=== PATIENT | male | born 1970 | race Caucasian/White ===

== ENCOUNTER 2024-10-30 08:23 | Outpatient (CLI) | payer OTHER, SELFPAY ==
--- NOTE | 2024-10-30 08:15 | RT.EKG_ITS ---
APPROVED REPORT Exam: Resting ECG Reason for Exam: afib, CAD Patient Location: O HR:70 bpm ECG Measurements Heart Rate 70 AXIS [place] 138 P 17 QRSd 106 QRS -48 QT 429 T 50 QTc 463 Conclusion Sinus rhythm...normal P axis, V-rate 50- 99 LAD, consider left anterior fascicular block...axis(240,-40), S>R II III aVF Borderline low voltage, extremity leads...all extremity leads <0.6mV
== END 2024-10-30 08:24 | disposition home or self-care (01) ==
LOC: DI.CARD 08:24
PROVIDERS: PCP Nurse Practitioner Family; Visit Provider Registered Nurse
DX: I48.91 Unspecified atrial fibrillation
CPT/HCPCS: 93010

== ENCOUNTER 2024-11-30 03:43 | Outpatient (CLI) | payer OTHER, SELFPAY ==
--- NOTE | 2024-11-30 08:15 | DI.US_ITS ---
APPROVED REPORT Exam: Exercise Treadmill Patient Location: Out-Patient Room/Bed: Stress Nurse: Nely Redd RN Ordering Provider:TONY CASAREZ, Contact Number: BMI: 42.56 Baseline Rhythm: Sinus Rhythm Indications: Chest pain, SOB, palpitations awakening during PM, afib Medical History Medical History: Anxiety, migraines, afib, GERD, asthma, CAD, HTN, morbid obesity, HLD, depression. p anic attacks, vitmain D deficiency, vitamin B12 deficiency Cardiac Medications: Albuterol, buspirone, vrayler, diclofenac, levocetirizine, lisinopril, omeprazol e, sertraline, tramadol Allergies: Beef containing products, pork/porcine containing products, chicken derived, pollen, anima l dander Cardiac Risk Factors: Family hx, HTN, HLD, asthma, CVD, former smoker, obesity Previous Cardiac Procedures: None Pretest Chest Pain Characteristics: None Exercise History: Indeterminate Physical Disabilities: None Lung Sounds: Clear to auscultation Heart Sounds: Regular Stress Test Details Test: Exercise stress testing was performed using a Nguyễn protocol. Rest Stress HR Resting HR Supine: 62 bpm Max Heart Rate (APMHR): 166 bpm Resting HR Standin bpm Target HR (85% APMHR): 141 bpm Max HR Achieved: 135 bpm % of APMHR: 81 Recovery HR: 74 bpm HR response to stress: Normal HR response to stress BP Resting BP Supine: 110/80 mmHg Resting BP Standin/80 mmHg Max BP: 180/80 mmHg Recovery BP: 130/70 mmHg BP response to stress: Normal blood pressure response to stress. ECG Resting ECG: Sinus Rhythm Stress ECG: Sinus Tachycardia ST Change: Nondiagnostic low heart rate Arrhythmia: Rare PAC, Rare PVC Recovery ECG: Sinus Rhythm Recovery ST Change: Nondiagnostic low heart rate Recovery Arrhythmia: Rare PAC, rare PVC Clinical Reason for Termination: Dyspnea Stress Symptoms: Severe SOB Exercise duration: 06 min53 sec Highest Stage Reached: Stage 3: 3.4 mph at 14% grade. Exercise capacity: 8.42 METs Angina Score: None Rate Pressure Product: [id number] Stress ECG Conclusion 1. Resting electrocardiogram showed low voltage and late transition 2. Patient exercised on the Nguyễn protocol and completed workload of 8.42 METS 3. Normal heart rate and blood pressure response to exercise. The patient achieved 81% of predicted heart rate for age 4. Electrocardiographically the test was submaximal, but at that heart rate and workload achieved the re was no electrocardiographic evidence of myocardial ischemia 5. Resting echocardiogram showed normal left ventricular function with an ejection fraction of 60%. Postexercise echocardiogram showed augmented contractility of all segments and improvement in EF to g reater than or equal to 70%. There was no echocardiographic evidence of myocardial ischemia Stress Test Summary STAGE Time (mins) Speed (mph) Grade (%) HR BP SpO2 SYMPTOMS METS Supine 62 110/80 98% Standing 70 108/80 1 3 1.7 10 62 120/82 98% Mod SOB 4.5 2 6 2.5 12 120 130/84 97% Severe SOB 7 3 9 3.4 14 132 Severe SOB 10 1 min recovery 102 180/80 98% 3 min recovery 79 174/90 96% Mild SOB 6 min recovery 76 150/78 97% 9 min recovery 74 130/70 95% All symptoms resolved
== END 2024-11-30 04:03 ==
LOC: DI 03:43
PROVIDERS: PCP Nurse Practitioner Family; Visit Provider Registered Nurse
DX: R07.9 Chest pain, unspecified (principal); I48.91 Unspecified atrial fibrillation
CPT/HCPCS: 93350; 93017

== ENCOUNTER 2024-11-30 14:51 | Outpatient (CLI) | payer OTHER, SELFPAY ==
[2024-11-30 14:15] LABS: Hemoglobin A1C 5.6 % (<5.7)
[2024-11-30 14:30] LABS: CREATININE 1.1 mg/dL (0.70-1.30); Calculated LDL 148 mg/dL (<100); Cholesterol 230 mg/dL (<200); Estimated GFR 79.77 (mL/min/1.73m2); HDL Cholesterol 67 mg/dL (40-60); Potassium 3.9 mmol/L (3.5-5.1); Triglyceride 78 mg/dL (<150)
== END 2024-11-30 14:52 | disposition home or self-care (01) ==
LOC: LBO 14:52
PROVIDERS: PCP Nurse Practitioner Family; Visit Provider Nurse Practitioner Family
DX: I10 Essential (primary) hypertension (principal); Z13.220 Encounter for screening for lipoid disorders; Z13.1 Encounter for screening for diabetes mellitus
CPT/HCPCS: 36415; 80061; 82565; 83036; 84132

== ENCOUNTER 2024-12-30 12:59 | Outpatient (CLI) | payer OTHER, SELFPAY ==
--- NOTE | 2024-12-30 13:33 | DI.RAD_ITS ---
Exam(s) XR CHEST 2V PA LATERAL EXAM: XR CHEST 2V PA LATERAL CLINICAL HISTORY: cough, r/o pneumonia TECHNIQUE: 2D digital imaging was performed. Two views. COMPARISON: CR CHEST 2 VIEWS PA,LAT from 01/11/2012 FINDINGS: HEART: Normal size. Aorta: Not dilated. PULMONARY VASCULATURE: Normal. MEDIASTINUM: Unremarkable. LUNGS: Clear. PLEURAL SPACE: No pleural effusion or pneumothorax. BONE:Unremarkable for age. SOFT TISSUES: Unremarkable. IMPRESSION: No acute abnormality. DATA REPOSITORY: RADIATION DOSE DELIVERED:
--- NOTE | 2024-12-30 13:53 | DI.VRAD_ITS ---
PROCEDURE INFORMATION: Exam: XR Chest Exam date and time: 12/30/2024 1:27 PM Age: 54 years old Clinical indication: Cough and fever and shortness of breath; PT stated they have been sick for weeks, had a cough for weeks, presented to urgent care this morning with a fever of 102 F TECHNIQUE: Imaging protocol: Radiologic exam of the chest. Views: 2 views. COMPARISON: No relevant prior studies available. FINDINGS: Lungs: Unremarkable. No consolidation. Pleural spaces: Unremarkable. No pleural effusion. No pneumothorax. Heart/Mediastinum: Unremarkable. No cardiomegaly. Bones/joints: Unremarkable. IMPRESSION: No acute findings. Dictated and Authenticated by: Cheryl Hudson MD. Orderin Analisa Hernandez MD
== END 2024-12-30 13:19 ==
PROVIDERS: PCP Nurse Practitioner Family; Visit Provider Physician Assistant
DX: R05.9 Cough, unspecified (principal)
CPT/HCPCS: 71046

== ENCOUNTER 2025-02-05 02:07 | Outpatient (CLI) | payer OTHER, SELFPAY ==
[2025-02-05] MEDS: Levalbuterol HFA 15 GM INH 4 PUFF IH (11:30)
[2025-02-05] MEDS: Inhaler, Assist Device 1 EACH MC (11:30)
--- NOTE | 2025-02-12 14:23 | W.PFT ---
Date of service: 02/05/25 Time of Service: 10:02 Pulmonary Function Test Result Indications: Asthma Interpretation Spirometry: No airflow limitation. No bronchodilator response. Lung Volumes: Normal lung volumes Diffusion Capacity: Normal diffusion Airway Pressure: Normal airways resistance Impression Normal pulmonary function testing Clinical Correlation therefore is recommended.
== END 2025-02-05 02:08 | disposition home or self-care (01) ==
LOC: RT 02:07
PROVIDERS: PCP Nurse Practitioner Family; Visit Provider Student in an Organized Health Care Education/Training Program
DX: J45.909 Unspecified asthma, uncomplicated (principal); Z87.891 Personal history of nicotine dependence
CPT/HCPCS: 94060; 94726; 94729

== ENCOUNTER → 2025-11-20 12:18 | Outpatient (CLI) | payer OTHER, SELFPAY ==
--- NOTE | 2025-11-20 12:31 | DI.RAD_ITS ---
Exam(s) XR FOOT LT COMPLETE EXAM: XR FOOT LT COMPLETE CLINICAL HISTORY: Left foot pain M79.672. TECHNIQUE: 2D digital imaging was performed. Three views. COMPARISON: No exams were available for comparison FINDINGS: BONES: No acute fracture is present. No bony destructive lesion is seen. JOINTS: No dislocation present. Plantar arch is maintained. There are hammertoe deformities of the 2nd and 3rd toes. There are degenerative changes at the 2nd tarsal metatarsal joint. SOFT TISSUE: Normal. IMPRESSION: Second and 3rd toe hammertoe deformities. Degenerative changes at the 2nd tarsal metatarsal joint. DATA REPOSITORY: RADIATION DOSE DELIVERED:
--- NOTE | 2025-11-20 12:40 | DI.RAD_ITS ---
Exam(s) XR ANKLE LT COMPLETE EXAM: XR ANKLE LT COMPLETE CLINICAL HISTORY: Left ankle pain M25.572 TECHNIQUE: 2D digital imaging was performed. Three views. COMPARISON: No exams were available for comparison FINDINGS: BONES: No acute fracture is present. No bony destructive lesion is seen. JOINTS:The ankle mortise is normally aligned. The tibiotalar joint space is maintained SOFT TISSUE: Normal. IMPRESSION: Unremarkable radiographs of the left ankle. DATA REPOSITORY: RADIATION DOSE DELIVERED:
== END ==
LOC: DI 12:18
PROVIDERS: PCP Nurse Practitioner Family; Visit Provider Podiatrist
DX: M79.672 Pain in left foot (principal); M25.572 Pain in left ankle and joints of left foot
CPT/HCPCS: 73610; 73630